=== PATIENT | female | born 2000 | race Two or more races ===

== ENCOUNTER 2025-09-06 12:53 | Emergency (ER) | payer OTHER ==
[~2025-09-06] VITALS: Ht 149.9 cm; Wt 53.5 kg
[2025-09-06 14:32] VITALS: BP 107/68; O2SAT 95
[2025-09-06] MEDS ORDERED: ZOVIRAX400 MG PO (15:28)
[2025-09-06 15:52] LABS: BASO % 0.7 % (0.1-1.2); EOS # 0.15 (0.04-0.54); EOS % 2.1 % (0.7-7.0); LYMPH # 1.71 (1.18-3.74); LYMPH % 24.1 % (19.3-53.1); MEAN PLATELET VOLUME 10.20 fl (9.4-12.4); MONO # 0.58 (0.24-0.82); MONO % 8.2 % (4.7-12.5); NEUT # 4.60 (1.56-6.13); NEUT % 64.6 % (34.0-71.1); RED CELL DISTRIBUTION WIDTH 11.8 % (11.6-14.4)
[2025-09-06 16:20] LABS: ALT/SGPT 21.0 U/L (12-78); AST/SGOT 17.0 U/L (15-37); BILIRUBIN TOTAL 0.45 mg/dL (0.3-1.2); BUN CREA RATIO 21.0 (7.0-25.0); CREATININE SERUM 0.87 mg/dL (0.55-1.02); GFR 80.69; GLOBULINA 3.3 G/DL (2.4-3.5); GLUCOSE FASTING 105.0 mg/dL (65-100); OSMOLALITY SERUM 284.0 MOSM/KG (275-295)
[2025-09-06 16:23] LABS: URINE APPEARANCE Clear; URINE BILIRRUBIN Negative (NEGATIVE); URINE BLOOD Negative; URINE COLOR Dark Yellow; URINE GLUCOSE Negative (NEGATIVE); URINE KETONE Trace (NEGATIVE); URINE LEUKOCYTE Trace; URINE NITRATE Positive; URINE PROTEIN Negative (NEGATIVE); URINE UROBILINOGEN 1.0 E.U./dl
[2025-09-06 16:24] LABS: URINE BACTERIA 341.9 uL (0.0-1933); URINE EPITHELIAL CELLS 22.4 uL (0.0-38.8); URINE WBC 25.9 uL (0.0-23.2)
[2025-09-06 17:01] LABS: URINE CAST 0.00 uL (0.0-1.40); URINE RBC 1.3 uL (0.0-20.8)
[2025-09-06] MEDS ORDERED: BACTRIM DS TAB1 EACH PO (21:01)
[2025-09-06] MEDS ORDERED: PYRIDIUM100 MG PO (21:04)
== END 2025-09-06 21:25 | disposition home or self-care (01) ==
LOC: ER 12:53
PROVIDERS: General Practice
DX: N39.0 Urinary tract infection, site not specified (principal); R30.0 Dysuria; M54.50 Low back pain, unspecified; Z91.013 Allergy to seafood